=== PATIENT | female | born 1970 | race Caucasian/White ===

== ENCOUNTER 2018-06-05 20:54 | Emergency (ER) | END 2018-06-05 23:26 | disposition home or self-care (01) ==

== ENCOUNTER 2018-08-12 20:26 | Emergency (ER) | END 2018-08-12 22:58 | disposition home or self-care (01) ==

== ENCOUNTER 2018-09-21 13:32 | Emergency (ER) | END 2018-09-21 16:59 | disposition home or self-care (01) ==